=== PATIENT | male | born 1965 | race Hispanic/Latino ===

== ENCOUNTER 2019-04-07 20:33 | Emergency (ER) | payer MEDICAID, OTHER ==
[2019-04-07] MEDS ORDERED: ASPIRIN 325 MG TABLET ONE (20:46)
[2019-04-07 21:03] LABS: INR 0.98 (0.85-1.15); PARTIAL THROMBOPLASTIN TIME 28.6 SEC (26.3-35.5); PROTHROMBIN TIME 10.3 SEC (9.6-11.6)
[2019-04-07 21:04] LABS: CREATININE 1.1 mg/dL (0.5-1.5); POTASSIUM 3.9 mmol/L (3.5-5.1)
[2019-04-07 21:09] LABS: ALBUMIN 3.9 g/dL (3.5-5.0); BILIRUBIN,TOTAL 0.9 mg/dL (0.2-1.0); TOTAL PROTEIN, SERUM 8.4 g/dL (6.0-8.3)
[2019-04-07 21:13] LABS: BASOPHILS % (AUTO) 1.2 % (0.0-5.0); EOSINOPHILS % (AUTO) 4.1 % (0.0-8.0); HEMATOCRIT 46.7 % (42-54); LYMPHOCYTES % (AUTO) 33.8 % (21.0-51.0); MEAN CORPUSCULAR HEMOGLOBIN 28.8 pg (27.0-33.0); MEAN CORPUSCULAR HGB CONC 33.5 g/dL (32.0-36.0); MEAN CORPUSCULAR VOLUME 86.2 fL (79-99); MONOCYTES % (AUTO) 12.4 % (3.0-13.0); NEUTROPHILS % (AUTO) 48.5 % (40.0-77.0); NUCLEATED RED BLOOD CELLS 0.1 % (0.0-0.19); PLATELET COUNT (AUTO) 237 K/uL (130-400); RED BLOOD CELL COUNT(AUTO) 5.41 MIL/uL (4.50-6.20); RED CELL DISTRIBUTION WIDTH 13.6 % (11.0-15.5); WHITE BLOOD COUNT (AUTO) 6.4 K/uL (4.8-10.8)
[2019-04-07] MEDS ORDERED: FAMOTIDINE/PF 20 MG/2 ML VIAL IV ONE (21:16)
[2019-04-07] MEDS ORDERED: ONDANSETRON HCL 4 MG/2 ML VIAL ONE (21:16)
[2019-04-07] MEDS ORDERED: SODIUM CHLORIDE 0.9% 1000ML 1,000 ML IV ONE (21:32)
[2019-04-07] MEDS ORDERED: IOHEXOL-350 50ML VIAL IV ONE (21:49)
[2019-04-08] MEDS ORDERED: LIDOCAINE HCL 2% VISCOUS 15 ML UDCUP ONE (00:54)
[2019-04-08] MEDS ORDERED: METOCLOPRAMIDE 10 MG/2 ML VIAL ONE (00:55)
[2019-04-08] MEDS ORDERED: MAG HYDROX/AL HYDROX/SIMETH ES 30 ML SUSP UDCUP ONE (00:55)
[2019-04-09] MEDS ORDERED: PANT40TA PO (09:30)
[2019-04-09] MEDS ORDERED: FOLI1TAB15 PO (09:30)
[2019-04-09] MEDS ORDERED: THIA100V3 IM (09:30)
== END 2019-04-08 01:25 | disposition home or self-care (01) ==
LOC: EDH 20:33
DX: K29.00 Acute gastritis without bleeding (principal); E86.0 Dehydration; K22.9 Disease of esophagus, unspecified; R11.2 Nausea with vomiting, unspecified; I10 Essential (primary) hypertension; Z90.49 Acquired absence of other specified parts of digestive tract; Z72.0 Tobacco use
CPT/HCPCS: 36415 ×2; 71045; 71260; 80053; 82270; 82550; 83605 ×2; 84484; 85025; 85610; 85730; 93005; 96361; 96374; 96375; 99285; J2405; J2765; J3490; J7030; Q9967

== ENCOUNTER 2019-04-08 12:59 | Observation (INO) | payer MEDICAID ==
[2019-04-08] MEDS ORDERED: MAG HYDROX/AL HYDROX/SIMETH ES 30 ML SUSP UDCUP ONE (13:30)
[2019-04-08] MEDS ORDERED: LIDOCAINE HCL 2% VISCOUS 15 ML UDCUP ONE (13:30)
[2019-04-08 13:45] LABS: BASOPHILS % (AUTO) 1.3 % (0.0-5.0); EOSINOPHILS % (AUTO) 1.9 % (0.0-8.0); HEMATOCRIT 39.7 % (42-54); LYMPHOCYTES % (AUTO) 34.3 % (21.0-51.0); MEAN CORPUSCULAR HEMOGLOBIN 29.5 pg (27.0-33.0); MEAN CORPUSCULAR HGB CONC 34.2 g/dL (32.0-36.0); MEAN CORPUSCULAR VOLUME 86.4 fL (79-99); MONOCYTES % (AUTO) 10.6 % (3.0-13.0); NEUTROPHILS % (AUTO) 51.9 % (40.0-77.0); NUCLEATED RED BLOOD CELLS 0.1 % (0.0-0.19); PLATELET COUNT (AUTO) 187 K/uL (130-400); RED BLOOD CELL COUNT(AUTO) 4.59 MIL/uL (4.50-6.20); RED CELL DISTRIBUTION WIDTH 13.3 % (11.0-15.5); WHITE BLOOD COUNT (AUTO) 4.9 K/uL (4.8-10.8)
[2019-04-08] MEDS ORDERED: SODIUM CHLORIDE 0.9% 100 ML IV ONE (15:03)
[2019-04-08] MEDS ORDERED: SODIUM CHLORIDE 0.9% 1000ML 1,000 ML IV SCH (15:32)
[2019-04-08] MEDS ORDERED: PHARMACY COMMUNICATION MISC PRN (15:45)
[2019-04-08] MEDS ORDERED: LACTULOSE 20 GM/30 ML UDCUP PO PRN (15:45)
[2019-04-08] MEDS ORDERED: ONDANSETRON HCL 4 MG/2 ML VIAL IV PRN (15:45)
[2019-04-08] MEDS ORDERED: LORAZEPAM 2 MG/ML 1 ML VIAL IVP PRN (15:45)
[2019-04-08] MEDS ORDERED: HYDRALAZINE HCL 20 MG/ML VIAL IV PRN (15:45)
[2019-04-08] MEDS ORDERED: ACETAMINOPHEN 325 MG TAB PO PRN ×2 (15:45)
[2019-04-08] MEDS ORDERED: SODIUM CHLORIDE 0.9% 1000ML 1,000 ML IV ONE (16:39)
[2019-04-08 16:47] LABS: AMPHET/METH SCREEN,URINE NEGATIVE (NEGATIVE); BARBITURATE SCREEN, URINE NEGATIVE (NEGATIVE); BENZODIAZEPINES SCREEN,URINE NEGATIVE (NEGATIVE); CANNABINOID SCREEN,URINE NEGATIVE (NEGATIVE); COCAINE SCREEN,URINE NEGATIVE (NEGATIVE); OPIATE SCREEN,URINE NEGATIVE (NEGATIVE); PHENCYCLIDINE SCREEN,URINE NEGATIVE (NEGATIVE)
[2019-04-08] MEDS ORDERED: SUCRALFATE 1 GM TABLET ONE (17:53)
[2019-04-08 19:00] VITALS: BP 160/104
[2019-04-08 21:27] LABS: HEMATOCRIT 40.2 % (42-54)
[2019-04-08] MEDS: SUCRALFATE 1 GM/10 ML PO SCH (22:00)
[2019-04-08 23:00] VITALS: BP 161/90
[2019-04-09 03:00] VITALS: BP 141/90
[2019-04-09] MEDS: SUCRALFATE 1 GM/10 ML PO SCH ×3 (05:29→16:03)
[2019-04-09 05:45] LABS: PARTIAL THROMBOPLASTIN TIME 28.7 SEC (26.3-35.5); PROTHROMBIN TIME 10.5 SEC (9.6-11.6)
[2019-04-09 05:56] LABS: ALBUMIN 3.2 g/dL (3.5-5.0); CREATININE 0.9 mg/dL (0.5-1.5); POTASSIUM 3.8 mmol/L (3.5-5.1); TOTAL PROTEIN, SERUM 6.8 g/dL (6.0-8.3)
[2019-04-09 07:14] LABS: HEMATOCRIT 36.3 % (42-54)
[2019-04-09 08:00] VITALS: BP 125/91
[2019-04-09 08:49] VITALS: BP 115/67
[2019-04-09] MEDS ORDERED: FOLIC ACID 1 MG TABLET PO SCH (09:00)
[2019-04-09] MEDS ORDERED: MULTIVITAMIN TABLET PO SCH (09:00)
[2019-04-09] MEDS ORDERED: THIAMINE HCL 100 MG/ML 2ML VIAL IM SCH (09:00)
[2019-04-09] MEDS ORDERED: PANTOPRAZOLE SODIUM 80 MG in SODIUM CHLORIDE 0.9% 100 ML IV SCH (09:00)
[2019-04-09] MEDS ORDERED: FOLI1TAB15 PO (09:30)
[2019-04-09] MEDS ORDERED: PANT40TA PO (09:30)
[2019-04-09] MEDS ORDERED: THIA100V3 IM (09:30)
--- NOTE | 2019-04-09 09:30 | NUR ---
MD GARCIA- VISITED WITH PATIENT. POC DISCUSSED. NEW ORDERS RECEIVED AND CARRIED OUT. VITALS STABLE. NO ACTIVE BLEEDING NOTED. AFEBRILE. UP AD LEXIE. TOLERATING PO DIET WELL. NO NAUSEA OR VOMITING NOTED. CALL LIGHT WITHIN REACH. WILL CONTINUE TO BE OBSERVED. Addendum: 04/09/19 at 1128 by AVELINA PABLO RN RN Amended: Links added.
--- NOTE | 2019-04-09 10:37 | NUR ---
DCP/ETOH Leeanne met with pt who is here from [place] visiting his mother Meghan Santos [phone]. Pt states he will be here another month, is independent, no DMe or HH. Plan is back home with mother Pt admits he is a daily beer drinker a 6pk a day. Has hx of rehab 3x, no success. Pt refused information on substance abuse resources offered. Addendum: 04/09/19 at 1040 by FERNANDO ESPANA SS Amended: Links added.
[2019-04-09 12:00] VITALS: BP 141/95
[2019-04-09 13:04] LABS: HEMATOCRIT 34.1 % (42-54)
[2019-04-09 16:00] VITALS: BP 139/91
--- NOTE | 2019-04-09 18:40 | NUR ---
DISCHARGE PATIENT GIVEN DISCHARGE INSTRUCTIONS AND EDUCATION, INCLUDING SIDE EFFECTS ON NEW PRESCRIPTIONS AND THE NEED TO STOP DRINKING ETOH. PATIENT VERBALIZED UNDERSTANDING OF ALL EDUCATION GIVEN VIA TEACH BACK. NO QUESTIONS OR CONCERNS VOICED AT THIS TIME. IV DISCONTINUED, CATHETER INTACT. NO SIGNS OF DISTRESS NOTED UPON DISCHARGE. PATIENT LEFT AMBULATORY WITH FAMILY AT SIDE. ALL BELONGINGS TAKEN WITH. Addendum: 04/09/19 at 1921 by AVELINA PABLO RN RN Amended: Links added.
== END 2019-04-09 18:25 | disposition home or self-care (01) ==
LOC: EDH 12:59 → EDHIP 13:00 → 3CH 18:43
PROVIDERS: ADMIT Internal Medicine; ATTEND Internal Medicine
DX: K92.1 Melena (principal); E86.1 Hypovolemia; K92.0 Hematemesis; I10 Essential (primary) hypertension; F10.20 Alcohol dependence, uncomplicated; Z79.899 Other long term (current) drug therapy
CPT/HCPCS: 36415 ×2; 80053; 80305; 85014 ×3; 85018 ×3; 85025; 85610; 85730; 96365; 96366; 96372; 99284; C9113 ×2; G0378 ×17; G0480; J3411; J7030

== ENCOUNTER 2020-03-06 07:15 | Emergency (ER) | payer MEDICAID, OTHER ==
[~2020-03-06 07:15] MED LIST: FOLI1TAB15 PO; PANT40TA PO; THIA100V3 IM
[2020-03-06] MEDS ORDERED: ONDANSETRON HCL 4 MG/2 ML VIAL ONE (07:31)
[2020-03-06 07:51] LABS: BASOPHILS % (AUTO) 1.2 % (0.0-5.0); EOSINOPHILS % (AUTO) 1.2 % (0.0-8.0); HEMATOCRIT 41.6 % (42-54); LYMPHOCYTES % (AUTO) 24.6 % (21.0-51.0); MEAN CORPUSCULAR HEMOGLOBIN 28.3 pg (27.0-33.0); MEAN CORPUSCULAR HGB CONC 33.4 g/dL (32.0-36.0); MEAN CORPUSCULAR VOLUME 84.7 fL (79-99); MONOCYTES % (AUTO) 8.4 % (3.0-13.0); NEUTROPHILS % (AUTO) 64.1 % (40.0-77.0); PLATELET COUNT (AUTO) 171 K/uL (130-400); RED BLOOD CELL COUNT(AUTO) 4.91 MIL/uL (4.50-6.20); RED CELL DISTRIBUTION WIDTH 12.6 % (11.0-15.5); WHITE BLOOD COUNT (AUTO) 6.6 K/uL (4.8-10.8)
[2020-03-06 08:05] LABS: ALBUMIN 3.9 g/dL (3.5-5.0); BILIRUBIN,DIRECT 0.3 mg/dL (0.0-0.3); BILIRUBIN,TOTAL 1.1 mg/dL (0.2-1.0); POTASSIUM 3.9 mmol/L (3.5-5.1); TOTAL PROTEIN, SERUM 7.9 g/dL (6.0-8.3)
== END 2020-03-06 09:54 | disposition home or self-care (01) ==
LOC: EDH 07:15
DX: K29.20 Alcoholic gastritis without bleeding (principal); F14.10 Cocaine abuse, uncomplicated; I10 Essential (primary) hypertension; Z72.0 Tobacco use
CPT/HCPCS: 36415; 80048; 80076; 82550; 83690; 84484; 85025; 93005; 96361; 96374; 99284; J2405